=== PATIENT | male | born 1995 | race Two or more races ===

== ENCOUNTER 2017-03-18 12:09 | Inpatient (IN) | payer OTHER, MEDICAID ==
[~2017-03-18] VITALS: Ht 152.4 cm; Wt 65.8 kg
[2017-03-18 12:11] VITALS: BP 137/80
--- NOTE | 2017-03-18 12:12 | NUR ---
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, CARETAKE INITIATED HEIMLECH MANUEVER AND BROCCOLI WAS DISPELLED; PT STATES " I'M UGLY, EVERYONE HATES ME AND I WANT TO KILL MYSELF"; PT DENIES HAVING A PLAN TO INITIATE SUICIDE AT THIS TIME; PT A&OX4, ACTING AT BASELINE; RR EVEN/UNLABORED, SKIN IS WARM/DRY/INTACT AT THIS TIME; PT NOTED W/ G-TUBE; DENIES ANY PAIN, N/V/D AT THIS TIME; HX: TRAUMATIC BRAIN INJURY, VISUALLY IMPAIRED, G-TUBE W/ BRYN, SECONDARY DYSTONIA AND DBS (DEEP BRAIN STIMULATOR); SUICIDAL PRECAUTIONS INITIATED; PT PLACED ON MONITOR, RESTING IN BED W/ HOB ELEVATED AND IN LOWEST POSITION; POSITIONED FOR COMFORT; ER MD TAYLOR AWARE OF STATUS. WILL CONTINUE TO MONITOR.
--- NOTE | 2017-03-18 12:23 | NUR ---
BARREL HANDLER CALLED [place] [employer]. WILL CONTINUE TO MONITOR PT. Addendum: 03/18/17 at 1450 by [employer] [employer] PT NOTED W/ BL SCARS TO UPPER CHEST FROM ELECTRODE BATTERY PLACEMENT; MOTHER STATES BATTERIES ARE CHARGED EVERY NIGHT AND USED FOR DEEP BRAIN STIMULATION THAT KEEPS PT SEIZURE FREE; MOTHER STATES PT HAS BEEN SEIZURE FREE X 2 YEARS.
[2017-03-18] MEDS ORDERED: ACETAMINOPHEN EXTRA STRENGTH 500 MG TAB PO ONE (12:35)
--- NOTE | 2017-03-18 12:44 | NUR ---
PT REFUSED TYLENOL ORDERED BY ER MD DR. LOVE MEDICATION; STATES " I'M OK"; EXPLAINED RISKS/BENEFITS; ER MD DR. LOVE NOTIFIED. WILL CONTINUE TO MONITOR.
--- NOTE | 2017-03-18 13:30 | NUR ---
[place] [employer] AT BEDSIDE.
--- NOTE | 2017-03-18 13:44 | NUR ---
PT PLACED ON 5150 HOLD BY [place] SHUKLA AT TIME.
--- NOTE | 2017-03-18 13:54 | NUR ---
Pt moved to bed 3 closer to nurses station. Aunt is at bedside. Security called to bedside for belongings check. Pt is calm and cooperative.
[2017-03-18] MEDS: NACL 0.9% 1,000 ML IV SCH (14:14)
[2017-03-18] MEDS ORDERED: HYDROcodone/APAP 7.5/325 MG 1 TAB PO PRN (14:15)
[2017-03-18] MEDS ORDERED: ACETAMINOPHEN 325 MG TAB PO PRN (14:15)
[2017-03-18] MEDS ORDERED: ONDANSETRON 4 MG/2 ML VIAL IVP PRN (14:15)
--- NOTE | 2017-03-18 14:30 | NUR ---
Patient appears to be resting comfortably in bed. Vital Signs within normal limits. Respirations even and unlabored. NO ACUTE DISTRESS NOTED AT THIS TIME; FAMILY AT BEDSIDE; WILL CONTINUE TO MONITOR.
--- NOTE | 2017-03-18 14:51 | NUR ---
REPORT GIVEN TO LISSETTE TIPTON; RN STATES ROOM NOT CLEAN; WILL CALL BACK WHEN ROOM READY FOR PT TO BED MOVED; MOTHER AT BEDSIDE; WILL CONTINUE TO MONITOR.
--- NOTE | 2017-03-18 15:10 | NUR ---
Patient will be admitted to care of DR. RYDER. Admited to TELEMETRY. Will go to room 122A. Belongings list completed. Report to SAEED MCLAUGHLIN.
[2017-03-18 15:36] VITALS: BP 117/64
--- NOTE | 2017-03-18 15:53 | NUR ---
Admitted from ER , with chief complaint of CHOKING ON FOOD , 21 y/o ,Male, AAOX2. NO S/S OF ACUTE DISTRESS. PT DENIES PAIN AT THIS TIME. PT DENIES ANY SUICIDAL IDEATION AT THIS TIME. HISTORY OBTAINED FROM MOTHER. IV SITE PATENT AND INTACT. FALL RISK PROTOCOL IN PLACE. TELE BOX PLACED ON PT. PT AND MOTHER oriented to call light, bed, phone,television, bathroom, smoking policy, visiting hours, procedures, ID bracelet on. Belongings list checked.
[2017-03-18] MEDS ORDERED: LORazepam 2 MG/ML VIAL IVP PRN (16:35)
[2017-03-18] MEDS ORDERED: LACTULOSE 20 GM/30 ML UDC PO SCH (16:50)
--- NOTE | 2017-03-18 19:18 | NUR ---
ENDORSED PLAN OF CARE TO NIGHT RN. PT REMAINS IN STABLE CONDITION.
--- NOTE | 2017-03-18 19:30 | NUR ---
RECEIVED REPORT FROM [facility] NURSE. PT'S MOTHER AT BEDSIDE. PT AOX3, ABLE TO VERBALIZE NEEDS. TRANSIT MAN. IN PLACE. 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 G TUBE CLAMPED. SCD IN PLACE IV ACCESS LEAKING, PT REPORTS PAIN AT SITE, IV ACCESS REMOVED, CANNULA INTACT. WILL INSERT ANOTHER IV. DISCUSSED AND REVIEWED PLAN OF CARE WITH PT. PT VERBALIZES UNDERSTANDING. 1:1 SITTER WITH CLOSE MONITORING ENSURED. SAFETY MEASURES ENSURED. WILL CONIINUE TO MONITOR. Addendum: 03/19/17 at 0521 by José Miguel August RN TO ADD: PT DENIES SUICIDAL IDEATION OR THOUGHTS OF HARMING SELF OR OTHERS.
[2017-03-18 20:00] VITALS: BP 129/72
[2017-03-18] MEDS: DOCUSATE SODIUM 100 MG GELCAP PO SCH (21:00)
--- NOTE | 2017-03-18 21:20 | NUR ---
PT REFUSED COLACE DESPITE EDUCATION. PT'S MOTHER REPORTED LARGE BM IN THE AFTERNOON. 1:1 SITTER WITH CLOSE MONITORING ENSURED AND PT'S MOTHER AT BEDSIDE. SAFETY MEASURES ENSURED. WILL CONTINUE TO MONITOR.
[2017-03-19] VITALS: BP 100/56
--- NOTE | 2017-03-19 | NUR ---
PT SLEEPING AT THIS TIME. ALL NEEDS MET. PT'S MOTHER AT BEDSIDE. PT'S DEEP BRAIN STIMULATION IMPLANT CURRENTLY CHARGING PER PT'S MOTHER. IVF INFUSING WELL. SCD IN PLACE. 1:1 SITTER AT BEDSIDE WITH CLOSE MONITORING. SAFETY MEASURES ENSURED. WILL CONTINUE TO MONITOR.
[2017-03-19 04:00] VITALS: BP 97/55
--- NOTE | 2017-03-19 04:00 | NUR ---
PT RESTING IN BED AT THIS TIME. IV ACCESS 20G ON RIGHT HAND INSERTED, PT TOLERATED WELL. PT REPOSITIONED, OFFLOADED PRESSURE SITES. BUSBY CATH, DRAINING CLEAR EDWAR URINE, EMPTIED WITH 900ML OUTPUT. ASSISTED PT WITH ADLS. SAFETY MEASURES ENSURED. CALL LIGHT WITHIN REACH. WILL CONTINUE TO MONITOR. Addendum: 03/19/17 at 0449 by José Miguel August RN WRONG PATIENT
--- NOTE | 2017-03-19 05:23 | NUR ---
PT RESTING IN BED. PT'S MOTHER AT BEDSIDE. CONDITION STABLE. IVF INFUSING WELL. PT DENIES SUICIDAL IDEATION. 1:1 SITTER WITH CLOSE MONITORING ENSURED. SAFETY MEASURES IN PLACE. CALL LIGHT WITHIN REACH.
--- NOTE | 2017-03-19 07:36 | NUR ---
ENDORSED PLAN OF CARE TO DAY NURSE. CONDITION STABLE.
--- NOTE | 2017-03-19 07:38 | NUR ---
RECEIVED REPORT FROM NIGHT RN. PT RESTING IN BED. NO S/S OF ACUTE DISTRESS. PT DENIES PAIN. AAOX2. MOTHER AMBREEN AT BEDSIDE. IV SITE PATENT AND INTACT. LEFT HAND RIGID. G-TUBE NOTED TO LEFT UPPER QUAD. SCD'S AT BEDSIDE. CALL LIGHT WITHIN REACH. SAFETY MEASURES ENSURED. WILL CONTINUE TO MONITOR.
[2017-03-19 08:00] VITALS: BP 109/68
[2017-03-19] MEDS ORDERED: PANTOPRAZOLE 40 MG INJ VIAL IVP SCH (09:00)
[2017-03-19] MEDS ORDERED: CITALOPRAM 20 MG TAB PO SCH (09:00)
[2017-03-19] MEDS: DOCUSATE SODIUM 100 MG GELCAP PO SCH (09:44)
--- NOTE | 2017-03-19 09:44 | NUR ---
PT RESTING IN BED. NO S/S OF ACUTE DISTRESS. PT DENIES PAIN. PT'S AM MEDS GIVEN WITH EDUCATION. MOTHER AT BEDSIDE. CALL LIGHT WITHIN REACH. SAFETY MEASURES ENSURED. WILL CONTINUE TO MONITOR.
[2017-03-19] MEDS: NACL 0.9% 1,000 ML IV SCH (09:47)
--- NOTE | 2017-03-19 09:47 | NUR ---
PATIENT HAS BEEN SCREENED AND CATEGORIZED LOW NUTRITION RISK. PATIENT WILL BE SEEN WITHIN 7 DAYS OF ADMISSION. 03/25/[address]
[2017-03-19] MEDS ORDERED: LACTULOSE 20 GM/30 ML UDC PO SCH (10:00)
--- NOTE | 2017-03-19 11:40 | NUR ---
PT RESTING IN BED. NO S/S OF ACUTE DISTRESS. PT DENIES PAIN. CALL LIGHT WITHIN REACH. SAFETY MEASURES ENSURED. WILL CONTINUE TO MONITOR.
[2017-03-19 12:00] VITALS: BP 105/65
[2017-03-19 12:46] VITALS: BP 105/65
--- NOTE | 2017-03-19 13:58 | NUR ---
PT CLEARED FOR DISCHARGE BY PRIMARY AND DR. BLACKWELL. DISCHARGE INSTRUCTIONS PROVIDED. PT'S MOTHER VERBALIZED UNDERSTANDING. NO S/S OF ACUTE DISTRESS. IV TAKEN OUT. TIP INTACT. PT DENIES PAIN. PT REMAINS IN STABLE CONDITION.
== END 2017-03-19 14:04 | disposition home or self-care (01) | DRG 441 ==
LOC: MED 12:09 → MTU 14:18
PROVIDERS: ADMIT Family Medicine; ATTEND Family Medicine
DX: K72.00 Acute and subacute hepatic failure without coma (principal); G93.41 Metabolic encephalopathy; R45.851 Suicidal ideations; G80.9 Cerebral palsy, unspecified; F79 Unspecified intellectual disabilities; H54.41 Blindness, right eye, normal vision left eye; Z53.29 Procedure and treatment not carried out because of patient's decision for other reasons; G24.9 Dystonia, unspecified; Z87.820 Personal history of traumatic brain injury; Z93.1 Gastrostomy status; Z90.49 Acquired absence of other specified parts of digestive tract